=== PATIENT | female | born 2000 | race African-American/Black ===

== ENCOUNTER → 2022-01-26 | Outpatient (CLI) | payer BC ==
--- NOTE | 2022-01-26 17:00 | KCIC ---
3 views lumbar spine dated 01/26/2022. COMPARISON: None. INDICATION: Pain. FINDINGS: 3 views obtained. Straightening of the normal lumbar lordosis. Sagittal alignment is otherwise anatom ic. Vertebral body heights are maintained. Mild hypertrophic change of the lower lumbar apophyseal kristi ints. IMPRESSION: 1. No acute radiographic abnormality. 2. Straightening of the normal lumbar lordosis is nonspecific but could be related to spasm or strain . Electronically signed by: Jovan Becker MD (01/26/2022 4:58 PM) [id number]
== END ==
LOC: KCIC 15:56
PROVIDERS: ATTEND Family Medicine
DX: M40.56 Lordosis, unspecified, lumbar region (principal)
CPT/HCPCS: 72100